=== PATIENT | female | born 1960 | race African-American/Black ===

== ENCOUNTER 2018-06-25 11:47 | Emergency (ER) | payer MEDICAID ==
[~2018-06-25] VITALS: Ht 170.2 cm; Wt 91.0 kg
[2018-06-25 14:18] LABS: BASOPHILS % 0.3 % (0.0-2.0); EOSINOPHILS % 1.1 % (0.0-5.0); MEAN CORPUSCULAR HEMOGLOBIN 17.3 pg (28.0-32.0); MEAN CORPUSCULAR VOLUME 60.6 fL (81.0-99.0); MEAN PLATELET VOLUME 6.6 fl (7.4-10.4); MONOCYTES % 4.5 % (2.0-8.0); NEUTROPHILS % 82.1 % (40.0-76.0); PLATELET 481 x1000/uL (130-400); RED BLOOD CELL COUNT 3.46 mill/uL (4.2-5.4); RED CELL DISTRIBUTION WIDTH 18.8 % (11.6-14.6)
[2018-06-25 14:24] LABS: CHLORIDE 105 mEq/L (98-107)
[2018-06-25 14:31] LABS: ETHANOL BLOOD < 10 mg/dL
[2018-06-25 14:48] LABS: PLATELET ESTIMATE SLIGHTLY INCREASED
[2018-06-25 15:03] LABS: CLARITY URINE CLEAR (CLEAR); COLOR URINE YELLOW (YELLOW); KETONES URINE NEGATIVE (NEGATIVE); LEUKOCYTE ESTERASE URINE 1+ (NEGATIVE); NITRITE URINE NEGATIVE (NEGATIVE); OCCULT BLOOD URINE NEGATIVE (NEGATIVE); PH URINE 6.5 (4.5-8.0); PROTEIN URINE NEGATIVE (NEGATIVE); UROBILINOGEN URINE 0.2 E.U./dL (0.2-1.0)
[2018-06-25 15:25] LABS: *AMPHETAMINES SCREEN URINE NEGATIVE (NEGATIVE); *BARBITURATES SCREEN URINE NEGATIVE (NEGATIVE); *BENZODIAZEPINES SCREEN URINE NEGATIVE (NEGATIVE); *COCAINE SCREEN URINE NEGATIVE (NEGATIVE); METHADONE URINE SCREEN NEGATIVE (NEGATIVE)
[2018-06-25 15:26] LABS: CANNABINOID URINE SCREEN PRESUMTIVE POSITIVE (NEGATIVE); OPIATES URINE SCREEN NEGATIVE (NEGATIVE); PHENCYCLIDINE URINE SCREEN NEGATIVE (NEGATIVE)
[2018-06-25 23:30] VITALS: BP 133/66
== END 2018-06-26 02:32 | disposition left against medical advice (07) ==
LOC: ER 11:47
DX: S09.8XXA Other specified injuries of head, initial encounter (principal); D64.9 Anemia, unspecified; F12.929 Cannabis use, unspecified with intoxication, unspecified; F41.9 Anxiety disorder, unspecified; F32.9 Major depressive disorder, single episode, unspecified; E86.0 Dehydration; R11.10 Vomiting, unspecified; F17.200 Nicotine dependence, unspecified, uncomplicated; W19.XXXA Unspecified fall, initial encounter; Y93.89 Activity, other specified; Y92.89 Other specified places as the place of occurrence of the external cause; Y99.8 Other external cause status
CPT/HCPCS: 36415; 70486; 80305; 80320; 84484; 93005; 99284; G0480